=== PATIENT | female | born 1940 | race Caucasian/White ===

== ENCOUNTER 2019-11-01 12:38 | Day surgery (SDC) | payer MEDICARE ==
[~2019-11-01] VITALS: Ht 160 cm; Wt 67.0 kg
[~2019-11-01 12:38] MED LIST: SODIUM CHLORIDE 0.9% 1,000 ML IV SCH
[2019-11-01] MEDS ORDERED: SPIR25TA5 PO (13:21)
[2019-11-01] MEDS ORDERED: MELO15TA24 PO (13:21)
[2019-11-01] MEDS ORDERED: FURO20TA3 PO (13:22)
[2019-11-01] MEDS ORDERED: ATOR40TA78 PO (13:22)
[2019-11-01] MEDS ORDERED: CARV6.252 PO (13:22)
[2019-11-01] MEDS ORDERED: AMLO-150 PO (13:23)
[2019-11-01] MEDS ORDERED: UMEC1DIS INH (13:24)
[2019-11-01] MEDS ORDERED: ALBU90AE INH (13:26)
[2019-11-01] MEDS ORDERED: DIPHENHYDRAMINE 50 MG/ML, 1ML IVPush ONE (13:30)
[2019-11-01] MEDS ORDERED: PLEASE ENTER ALLERGIES MC SCH (13:30)
[2019-11-01] MEDS ORDERED: PLEASE ENTER HEIGHT AND WEIGHT MC SCH (13:30)
[2019-11-01 13:36] VITALS: BP 147/63
[2019-11-01 14:50] LABS: BASOPHILS # (AUTO) 0.03 x10^3/uL (0-0.1); BASOPHILS % (AUTO) 1 % (0-1); EOSINOPHILS # (AUTO) 0.16 x10^3/uL (0-0.4); EOSINOPHILS % (AUTO) 3 % (1-7); LYMPHOCYTES # (AUTO) 1.25 x10^3/uL (1-3.4); LYMPHOCYTES % (AUTO) 23 % (22-44); MD NO; MEAN CORPUSCULAR HEMOGLOBIN 31.4 pg (27.0-34.8); MEAN CORPUSCULAR HGB CONC 32.8 g/dL (32.4-35.8); MEAN CORPUSCULAR VOLUME 95.8 fL (80-100); MEAN PLATELET VOLUME 8.5 fL (7.4-10.4); MONOCYTES # (AUTO) 0.59 x10^3/uL (0.2-0.8); MONOCYTES % (AUTO) 11 % (2-9); NEUTROPHILS # (AUTO) 3.34 x10^3/uL (1.8-6.8); NEUTROPHILS % (AUTO) 62 % (42-75); PLATELET COUNT 196 x10^3/uL (130-400); RED BLOOD COUNT 3.55 x10^6/uL (3.82-5.3); RED CELL DISTRIBUTION WIDTH 13.8 % (9.6-15.2)
[2019-11-01] MEDS ORDERED: DIPHENHYDRAMINE 50 MG/ML, 1ML ONE (15:05)
[2019-11-01] MEDS ORDERED: FENTANYL PF 100 MCG/2ML ONE (16:06)
[2019-11-01] MEDS ORDERED: MIDAZOLAM 1 MG/ML, 5ML ONE (16:06)
[2019-11-01] MEDS ORDERED: FUROSEMIDE 20 MG/2 ML IV ONE (17:30)
== END 2019-11-01 17:30 | disposition home or self-care (01) ==
LOC: CACL 12:38
PROVIDERS: ATTEND Internal Medicine Cardiovascular Disease
DX: R06.02 Shortness of breath (principal); I10 Essential (primary) hypertension; E78.2 Mixed hyperlipidemia; J84.10 Pulmonary fibrosis, unspecified; E66.3 Overweight; Z68.27 Body mass index [BMI] 27.0-27.9, adult; Z79.1 Long term (current) use of non-steroidal anti-inflammatories (NSAID); Z79.899 Other long term (current) drug therapy; Z88.0 Allergy status to penicillin; Z88.5 Allergy status to narcotic agent
CPT/HCPCS: 36415; 85025; 93451; C1769; C1894; J1200; J2250; J3010